=== PATIENT | female | born 1995 | race Caucasian/White ===

== ENCOUNTER 2018-10-04 16:53 | Inpatient (IN) | payer MEDICAID ==
[2018-10-04] MEDS ORDERED: IBUPROFEN 600 MG TAB PO (17:30)
[2018-10-04] MEDS ORDERED: BUTORPHANOL 2 MG INJ IV (17:30)
[2018-10-04] MEDS ORDERED: CARBOPROST 250 MCG INJ IM ×2 (17:30→20:30)
[2018-10-04] MEDS ORDERED: BUTORPHANOL 1 MG INJ IV (17:30)
[2018-10-04] MEDS ORDERED: LIDOCAINE 1% (MPF) 30 ML INJ INJ (17:30)
[2018-10-04 18:03] LABS: ADD MAN DIFF? NO
[2018-10-04 18:07] LABS: WHITE BLOOD COUNT 8.3 10^3/ul (4.8-10.8)
[2018-10-04 18:07] LABS: BASOPHILS % 0.2 % (0.0-2.0); EOSINOPHILS # 0.1 10^3/ul (0.0-0.5); EOSINOPHILS % 0.6 % (0.0-7.0); HEMATOCRIT 37.1 % (37.0-47.0); HEMOGLOBIN 12.5 g/dl (12.0-16.0); LYMPHOCYTES # 2.1 10^3/ul (0.8-2.9); LYMPHOCYTES % 25.8 % (15.0-51.0); MEAN CORPUSCULAR HEMOGLOBIN 30.5 pg (29.0-33.0); MEAN CORPUSCULAR HGB CONC 33.7 g/dl (32.0-37.0); MEAN CORPUSCULAR VOLUME 90.5 fl (82.0-101.0); MEAN PLATELET VOLUME 10.5 fl (7.4-10.4); MONOCYTE # 0.8 10^3/ul (0.3-0.9); MONOCYTES % 9.7 % (0.0-11.0); NEUTROPHIL # 5.2 10^3/ul (1.6-7.5); NEUTROPHILS % 63.2 % (39.0-77.0); PLATELET COUNT 314 10^3/UL (140-415); RED CELL DISTRIBUTION WIDTH 12.7 % (11.5-14.5)
[2018-10-04] MEDS: LACTATED RINGER'S 1,000 ML IV (18:08)
[2018-10-04] MEDS: AMPICILLIN 2 GM/NS (PMX) 100 ML IV (18:09)
[2018-10-04 18:25] LABS: INR 0.87; PROTIME 11.9 Sec (11.9-14.9); PT RATIO 0.9
[2018-10-04 18:26] LABS: PARTIAL THROMBOPLASTIN TIME 28.1 Sec (23.0-35.0)
[2018-10-04 19:02] LABS: HEPATITIS B SURFACE ANTIGEN NEGATIVE (NEGATIVE)
[2018-10-04] MEDS ORDERED: OXYTOCIN 30 UNITS/LR 500 ML IV ×2 (19:30→20:30)
[2018-10-04] MEDS: OXYTOCIN 30 UNITS/LR 500 ML IV ×3 (19:30→20:25)
[2018-10-04] MEDS: METHYLERGONOVINE 0.2 MG INJ IM (20:07)
[2018-10-04] MEDS: OXYCODONE/ASPIRIN (4.88/325) TAB PO (20:08)
[2018-10-04] MEDS: MISOPROSTOL 200 MCG TAB PR (20:26)
[2018-10-04] MEDS: DEXTROSE 5%-LR 1,000 ML IV (20:26)
[2018-10-04] MEDS ORDERED: ONDANSETRON 4 MG INJ IV (20:30)
[2018-10-04] MEDS ORDERED: DIBUCAINE 1% 30 GM OINT TOP (20:30)
[2018-10-04] MEDS ORDERED: METHYLERGONOVINE 0.2 MG INJ IM (20:30)
[2018-10-04] MEDS ORDERED: MISOPROSTOL 200 MCG TAB PR (20:30)
[2018-10-04] MEDS ORDERED: DIPHENHYDRAMINE 50 MG INJ IV (20:30)
[2018-10-04] MEDS ORDERED: OXYCODONE/ASPIRIN (4.88/325) TAB PO (20:30)
[2018-10-04] MEDS ORDERED: ACETAMINOPHEN 325 MG TAB PO (20:30)
[2018-10-04] MEDS ORDERED: ZOLPIDEM 5 MG TAB PO (20:30)
[2018-10-04] MEDS ORDERED: AMPICILLIN 1 GM/NS (PMX) 50 ML IV (21:30)
[2018-10-04] MEDS: BENZOCAINE 20% 56 ML SPRAY TOP (23:45)
[2018-10-04] MEDS: IBUPROFEN 600 MG TAB PO (23:45)
[2018-10-04] MEDS: WITCH HAZEL/GLYCERIN PAD PR (23:45)
[2018-10-04] MEDS: LANOLIN HPA 1 PKT TOP (23:45)
[2018-10-05] MEDS: LACTATED RINGER'S 1,000 ML IV* ×2 (01:13→04:26)
[2018-10-05] MEDS: DEXTROSE 5%-LR 1,000 ML IV (04:26)
[2018-10-05] MEDS: IBUPROFEN 600 MG TAB PO ×4 (05:28→23:34)
[2018-10-05 08:07] LABS: ADD MAN DIFF? NO
[2018-10-05 08:10] LABS: WHITE BLOOD COUNT 14.1 10^3/ul (4.8-10.8)
[2018-10-05 08:10] LABS: BASOPHILS % 0.3 % (0.0-2.0); EOSINOPHILS # 0.1 10^3/ul (0.0-0.5); EOSINOPHILS % 0.9 % (0.0-7.0); HEMATOCRIT 35.9 % (37.0-47.0); HEMOGLOBIN 11.7 g/dl (12.0-16.0); LYMPHOCYTES # 3.5 10^3/ul (0.8-2.9); LYMPHOCYTES % 25.1 % (15.0-51.0); MEAN CORPUSCULAR HEMOGLOBIN 30.1 pg (29.0-33.0); MEAN CORPUSCULAR HGB CONC 32.6 g/dl (32.0-37.0); MEAN CORPUSCULAR VOLUME 92.3 fl (82.0-101.0); MEAN PLATELET VOLUME 10.5 fl (7.4-10.4); MONOCYTE # 1.1 10^3/ul (0.3-0.9); MONOCYTES % 7.7 % (0.0-11.0); NEUTROPHIL # 9.2 10^3/ul (1.6-7.5); NEUTROPHILS % 65.4 % (39.0-77.0); PLATELET COUNT 262 10^3/UL (140-415); RED BLOOD COUNT 3.89 10^6/ul (4.20-5.40); RED CELL DISTRIBUTION WIDTH 12.9 % (11.5-14.5)
[2018-10-05] MEDS: DIPHTH/TET/ACEL PERTUSS (ADULT) 0.5 ML VIAL IM* (12:47)
[2018-10-05] MEDS: MEASLES,MUMPS,RUBELLA VACCINE INJ SC* (12:47)
[2018-10-05] MEDS: SENNA/DOCUSATE NA (8.6MG/50MG) TAB PO (12:58)
[2018-10-05 17:10] LABS: RAPID PLASMA REAGIN NONREACTIVE (NR)
[2018-10-06] MEDS: IBUPROFEN 600 MG TAB PO ×3 (05:45→17:44)
[2018-10-06] MEDS: SENNA/DOCUSATE NA (8.6MG/50MG) TAB PO (08:58)
== END 2018-10-06 18:50 | disposition home or self-care (01) | DRG 807 ==
LOC: OBT 16:53 → L-D 16:55 → OBT 17:15 → L-D 17:15 → PP1 21:41
PROVIDERS: Obstetrics & Gynecology
PROC: 10E0XZZ Delivery of Products of Conception, External Approach (ICD-10-PCS; principal; 2018-10-04)
PROC: 0HQ9XZZ Repair Perineum Skin, External Approach (ICD-10-PCS; 2018-10-04)
PROC: 4A1HXCZ Monitoring of Products of Conception, Cardiac Rate, External Approach (ICD-10-PCS; 2018-10-04)
DX: O99.824 Streptococcus B carrier state complicating childbirth (principal); Z37.0 Single live birth; O70.0 First degree perineal laceration during delivery; Z3A.39 39 weeks gestation of pregnancy
CPT/HCPCS: 76815; 85025; 85610; 85730; 86592; 86850; 86900; 86901; 87340